=== PATIENT | female | born 1990 | race Caucasian/White ===

== ENCOUNTER 2020-08-05 18:03 | Emergency (ER) | payer OTHER ==
[2020-08-05 18:27] VITALS: BMI 17.9
[2020-08-05 19:15] VITALS: BP 97/60; PULSE 84; TEMP 98.8
== END 2020-08-05 19:35 | disposition home or self-care (01) ==
LOC: FER 18:03
DX: F41.9 Anxiety disorder, unspecified (principal)
CPT/HCPCS: 99283-25

== ENCOUNTER 2024-05-17 06:56 | Day surgery (SDC) | payer OTHER ==
[2024-05-10 12:42] VITALS: BMI 17.9
[2024-05-17] MEDS ORDERED: LIDOCAINE HCL/PF 2% SDV 5ML VIAL ONE (07:30)
[2024-05-17] MEDS ORDERED: PROPOFOL 240 ML ONE (07:30)
[2024-05-17 08:32] VITALS: RESP 16; TEMP 97.3
[2024-05-17 08:54] VITALS: PULSE 78
[2024-05-17 08:57] VITALS: BP 99/51
== END 2024-05-17 09:20 | disposition home or self-care (01) ==
LOC: FASU-ENDO 06:56
PROVIDERS: ATTEND Internal Medicine Gastroenterology
PROC: 0DB68ZX Excision of Stomach, Via Natural or Artificial Opening Endoscopic, Diagnostic (ICD-10-PCS; 2024-05-17)
PROC: 0DB18ZX Excision of Upper Esophagus, Via Natural or Artificial Opening Endoscopic, Diagnostic (ICD-10-PCS; 2024-05-17)
PROC: 0DB38ZX Excision of Lower Esophagus, Via Natural or Artificial Opening Endoscopic, Diagnostic (ICD-10-PCS; 2024-05-17)
PROC: 0DB98ZX Excision of Duodenum, Via Natural or Artificial Opening Endoscopic, Diagnostic (ICD-10-PCS; principal; 2024-05-17 08:05)
DX: K29.50 Unspecified chronic gastritis without bleeding (principal); R13.10 Dysphagia, unspecified
CPT/HCPCS: 81025; 88305-TC